=== PATIENT | male | born 1990 | race Caucasian/White ===

== ENCOUNTER 2019-11-16 01:08 | Emergency (ER) | payer SELFPAY ==
[2019-11-16] MEDS ORDERED: Cleocin Phosphate IV 600 MG/4 ML IM ONE (01:59)
[2019-11-16] MEDS ORDERED: Cleocin Phosphate IV 600 MG/4 ML ONE (02:03)
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
[2019-11-16 02:25] VITALS: BP 151/89; PULSE 119; O2SAT 97
[2019-11-16] MEDS ORDERED: Xylocaine 2%-Epi 1:100,000 MDV IJ ONE (02:25)
[2019-11-16] MEDS ORDERED: BACIGUENT PACKET TP ONE (02:26)
== END 2019-11-16 02:27 | disposition home or self-care (01) ==
LOC: ED 01:08
DX: S01.511A Laceration without foreign body of lip, initial encounter (principal); Y04.8XXA Assault by other bodily force, initial encounter
CPT/HCPCS: 96372; 99284; 99291; A9270-GY